=== PATIENT | female | born 1975 | race Caucasian/White ===

== ENCOUNTER 2019-05-09 14:05 | Inpatient (IN) | payer SELFPAY ==
[~2019-05-09] VITALS: Ht 157.5 cm; Wt 82.1 kg
[2019-05-09] MEDS ORDERED: AMOXICILLIN 50500 MG PO (18:33)
[2019-05-09 19:41] LABS: HEMATOCRIT 41.8 % (37.0-47.0); HEMOGLOBIN 13.6 g/dl (12.5-16.0); MEAN CELL VOLUME 90 fl (80.0-100.0); MEAN CORPUSCULAR HEMOGLOBIN 29 pg (27.0-31.0); MEAN CORPUSCULAR HGB CONC 33 g/dl (33.0-37.0); PLATELET COUNT 453 K/mm3 (130-400); RED BLOOD COUNT 4.65 M/mm3 (4.10-5.30); REDCELL DISTRIBUTION WIDTH-CV 13.2 % (11.5-14.5)
[2019-05-09 19:51] LABS: BILIRUBIN,TOTAL 0.6 mg/dL (0.0-1.0); CALCIUM 9.3 mg/dL (8.4-10.2); CREATININE, serum 0.59 (0.52-1.25); POTASSIUM 3.6 mmol/L (3.4-5.0); TOTAL PROTEIN 8.5 gm/dL (6.4-8.2)
[2019-05-09 21:38] LABS: BAND 5 % (0-10); LYMPHOCYTE 22 % (20.0-51.0); METAMYELOCYTE 2 % (0-0); NEUTROPHILS 63 % (42.0-75.2)
[2019-05-09 21:39] LABS: PLATELET ESTIMATE INCREASED (NORMAL)
[2019-05-09 21:40] LABS: HYPOCHROMIA 1+
[2019-05-10] VITALS (7 sets, daily range): BP systolic 107–127; BP diastolic 55–80; PULSE 77–102; TEMP 97.5–98.9
--- NOTE | 2019-05-10 01:12 | NUR ---
Patient up to room 347 at 0020 via wheelchair. spouse at bedside. alert and oriented. med rx and assessment done with use of firestopper technician system. IV abx started and fluids. IV decadron given. L cheek is significantly swollen affecting eyelid as well. denies pain at this time. no further needs, will continue to monitor.
--- NOTE | 2019-05-10 07:55 | NUR ---
Lying in bed with eyes open. When asked if having pain patient says yes. Provider was in room and attempted aspiration of left cheek, no return of fluid. bandaid in place to left cheek. 2+ edema noted to left side of face, area red, painful to touch. Spouse in room with the patient.
--- NOTE | 2019-05-10 08:07 | NUR ---
Patient would like medication for pain. Administered Dilaudid as prescribed.
[2019-05-10 08:52] LABS: PATHOLOGY DIFF REVIEW OK
--- NOTE | 2019-05-10 11:04 | NUR ---
Initial visit; Patient and her family thanked Switching Clerk for looking in on her and offering empathy and prayer prior to her 'Procedure.'
--- NOTE | 2019-05-10 12:15 | NUR ---
Sitting up in bed. Denies pain currently in left side of face. Denies any needs at this time.
--- NOTE | 2019-05-10 15:50 | NUR ---
Patient Assessment Coordinator met with patient and patient's Ramone (ph#[phone]) to discuss discharge planning. SW utilized product development chemist line as patient speaks [place]ian primarily. Patient lives in [place] with her and currently does not have primary care established. SW provided information about [facility] including information about their income based, sliding fee scale. Patient is agreeable to have appointment set up. Patient already receives dental care from [facility]. Patient obtains medications from [facility] in [place]. Patient does not use any DME and is independent with [facility]. Patient plans to return home upon discharge. RICHARD made appointment for 05/12/19 at 1000 with 0940 arrival time and provided appointment to RNTaya and patient. Patient agreeable to this appointment time. RICHARD advised patient she would need to bring three pay stubs with her and patient states she can do this. RICHARD collaborated with [employer] Counselor who advised he will mail Financial Assistance Application to patient and will call to follow up. SW to continue to follow as needed.
--- NOTE | 2019-05-10 16:34 | NUR ---
Sitting up in bed with eyes open. Swelling to left side of face has decreased. Patient denies pain or any needs at this time.
--- NOTE | 2019-05-10 21:00 | NUR ---
PATIENT REPORTS DECREASE IN SWELLING OF LEFT SIDE OF FACE. DENIES PAIN. IS ALERT AND ORIENTED X4. IV SITE TO LEFT AC, IVF INFUSING WITHOUT PROBLEM.
[2019-05-11 03:43] VITALS: BP 100/47; PULSE 66; TEMP 98.2
--- NOTE | 2019-05-11 03:45 | NUR ---
Pt awake, denies pain or concerns at this time.
[2019-05-11 07:43] LABS: MEAN CELL VOLUME 93 fl (80.0-100.0); MEAN CORPUSCULAR HGB CONC 32 g/dl (33.0-37.0); MEAN PLATELET VOLUME 10.9 fl (7.4-10.4); PLATELET COUNT 408 K/mm3 (130-400); RED BLOOD COUNT 3.97 M/mm3 (4.10-5.30)
[2019-05-11 07:47] LABS: HEMATOCRIT 36.8 % (37.0-47.0); HEMOGLOBIN 11.6 g/dl (12.5-16.0); MEAN CORPUSCULAR HEMOGLOBIN 29 pg (27.0-31.0)
[2019-05-11 08:11] LABS: BAND 24 % (0-10); LYMPHOCYTE 7 % (20.0-51.0); METAMYELOCYTE 2 % (0-0); NEUTROPHILS 64 % (42.0-75.2); PLATELET ESTIMATE INCREASED (NORMAL)
[2019-05-11 08:21] VITALS: BP 102/48; PULSE 73; TEMP 98.4
--- NOTE | 2019-05-11 08:43 | NUR ---
Lying in bed with eyes open. Denies pain at this time. Swelling to left side of face 1+ edema, has decreased more since yesterday. Able to open left eye without difficulty. Patient denies needs. CT staff here to take patient to CT via wheelchair.
--- NOTE | 2019-05-11 09:18 | NUR ---
Patient back to room from CT. Lying in bed with eyes open. Spouse in room. Denies needs at this time.
[2019-05-11] MEDS ORDERED: CLEOCIN HCL300 MG PO (10:43)
[2019-05-11] MEDS ORDERED: FLAGYL500 MG PO (10:45)
--- NOTE | 2019-05-11 12:00 | NUR ---
Utilized the language line to review discharge instructions with the patient and her spouse. Questions answered. Patient verbalizes understanding to all and signs all discharge paperwork. Discharge packet provided to the patient. IV site dc'd with catheter intact. Applied 2x2 to site and reinforced with bandaid. Patient will get dressed at this time and will call when she is ready to be walked out. Spouse is here to take patient home.
--- NOTE | 2019-05-11 12:20 | NUR ---
First visit from the maintenance painter. No needs right now.
--- NOTE | 2019-05-11 12:25 | NUR ---
Patient escorted out to vehicle by this nurse. Spouse with the patient.
== END 2019-05-11 12:29 | disposition home or self-care (01) | DRG 603 ==
LOC: COL.ER 14:05 → SURG 22:56
PROVIDERS: Nurse Practitioner; ADMIT Student in an Organized Health Care Education/Training Program
DX: L02.11 Cutaneous abscess of neck (principal)
CPT/HCPCS: J1100; J1170; J1885; J7030; Q9967